=== PATIENT | female | born 1945 | race Native Hawaiian/Other Pacific Islander ===

== ENCOUNTER 2019-10-15 09:06 | Emergency (ER) | payer OTHER, MEDICARE ==
[~2019-10-15] VITALS: Ht 177.8 cm; Wt 116.6 kg
[2019-10-15 09:59] VITALS: BP 157/80; TEMP 98.4
== END 2019-10-15 10:08 | disposition home or self-care (01) ==
LOC: ED 09:06
PROC: 0HQFXZZ Repair Right Hand Skin, External Approach (ICD-10-PCS; principal; 2019-10-15)
DX: S61.011A Laceration without foreign body of right thumb without damage to nail, initial encounter (principal); W26.8XXA Contact with other sharp object(s), not elsewhere classified, initial encounter; Y92.89 Other specified places as the place of occurrence of the external cause
CPT/HCPCS: 90471; 90715; 96372; 99283; J0696